=== PATIENT | male | born 1965 | race Caucasian/White ===

== ENCOUNTER 2018-08-06 06:56 | Day surgery (SDC) | payer BC, OTHER ==
[2018-08-05 10:58] VITALS: BMI 25.5
[2018-08-06] MEDS ORDERED: MIDAZOLAM HCL 2 MG/2 ML SINGLE DOSE VIAL ONE (08:57)
[2018-08-06] MEDS ORDERED: PROPOFOL 20 ML ONE (08:57)
[2018-08-06] MEDS ORDERED: ROCURONIUM BROMIDE 50 MG/5 ML VIAL ONE (08:57)
[2018-08-06] MEDS ORDERED: LIDOCAINE HCL/PF 2% SDV 5ML VIAL ONE (08:58)
[2018-08-06] MEDS ORDERED: DESFLURANE GAS 240 ML BOTTLE IH ONE (09:13)
[2018-08-06] MEDS ORDERED: ceFAZolin SODIUM 1 GM VIAL ONE (09:21)
[2018-08-06] MEDS ORDERED: SODIUM CHLORIDE 0.9% P/F 10 ML VIAL IJ ONE (09:21)
[2018-08-06] MEDS ORDERED: ceFAZolin SODIUM 1 GM VIAL IVPB ONE (09:22)
[2018-08-06] MEDS ORDERED: DEXAMETHASONE SOD PHOSPHATE 4 MG/1 ML VIAL ONE (09:23)
[2018-08-06] MEDS ORDERED: ONDANSETRON 4 MG/2 ML VIAL IVPUSH PRN (10:59)
[2018-08-06] MEDS ORDERED: PROMETHAZINE HCL 25 MG/1 ML VIAL IVPUSH PRN (10:59)
[2018-08-06] MEDS ORDERED: LACTATED RINGERS SOLUTION 1,000 ML IV SCH (11:00)
[2018-08-06] MEDS ORDERED: oxyCODONE HCL 5 MG TABLET PO PRN (11:16)
--- NOTE | 2018-08-06 11:18 | HP ---
Admitting History and Physical - Admission Chief Complaint: left lower extremity varicose veins. Here today for phlebectomy Limitations to Obtaining History: No Limitations - Past Medical History Cardiovascular: Yes: Hyperlipdemia - Past Surgical History Past Surgical History: Yes: None - Smoking History Smoking history: Never smoked Have you smoked in the past 12 months: No - Alcohol/Substance Use Hx Alcohol Use: No Home Medications - Allergies Allergies/Adverse Reactions: Allergies Allergy/AdvReac Type Severity Reaction Status Date / Time No Known Allergies Allergy Verified 08/06/18 08:03 - Home Medications Home Medications: Ambulatory Orders Aspirin [ASA -] 1 tab PO DAILY 09/15/17 Atorvastatin Ca [Lipitor] 1 tab PO HS 09/15/17 Review of Systems - Review of Systems Constitutional: reports: No Symptoms Eyes: reports: No Symptoms HENT: reports: No Symptoms Neck: reports: No Symptoms Cardiovascular: reports: No Symptoms Respiratory: reports: No Symptoms Gastrointestinal: reports: No Symptoms Genitourinary: reports: No Symptoms Musculoskeletal: reports: No Symptoms Integumentary: reports: No Symptoms Neurological: reports: No Symptoms Hematology/Lymphatic: reports: No Symptoms Psychiatric: reports: No Symptoms Physical Examination Vital Signs: Vital Signs Temperature 98.0 F 08/06/18 07:57 Pulse Rate 57 L 08/06/18 07:57 Respiratory Rate 20 08/06/18 07:57 Blood Pressure 133/90 08/06/18 07:57 O2 Sat by Pulse Oximetry (%) 98 08/06/18 07:38 Constitutional: Yes: Well Nourished, No Distress, Calm Eyes: Yes: WNL, Conjunctiva Clear, EOM Intact HENT: Yes: WNL, Atraumatic, Normocephalic Neck: Yes: WNL, Supple, Trachea Midline Cardiovascular: Yes: WNL, Regular Rate and Rhythm Respiratory: Yes: WNL, Regular, CTA Bilaterally Gastrointestinal: Yes: WNL, Normal Bowel Sounds Musculoskeletal: Yes: WNL Extremities: Yes: WNL, Other (varicose vein left lower extremities) Edema: No Peripheral Pulses WNL: Yes Integumentary: Yes: WNL Neurological: Yes: WNL, Alert, Oriented ...Motor Strength: WNL Psychiatric: Yes: WNL Problem List - Problems (1) Varicose veins of left leg with edema Assessment/Plan: left lower ext varicose veins 1. For stab phlebectomy today Code(s): I83.892 - VARICOSE VEINS OF L LOW EXTREM WITH OTHER COMPLICATIONS
--- NOTE | 2018-08-06 11:21 | OP ---
Operative Note - Note: Operative Date: 08/06/18 Pre-Operative Diagnosis: varicose veins left leg Operation: Stab phlebectomy left leg -- 23 stabs Post-Operative Diagnosis: Same as Pre-op Surgeon: Jeffery Butler Anesthesiologist/JUNIOR [employer]: Brennan Reich Anesthesia: General Estimated Blood Loss (mls): 100 Operative Report Dictated: Yes
[2018-08-06 13:04] VITALS: BP 127/77; PULSE 61; TEMP 97.7
--- NOTE | 2018-08-07 19:47 | PATH ---
Surgical Pathology Report Patient Name: DEVAN MEZA [facility]. Rec. #: [id number] /Age/Gender: 1965 (Age: 52) / M Account: [id number] Location: [facility] SURGICAL Taken: 08/06/2018 Received: 08/06/2018 Reported: 08/07/2018 Physicians: Jeffery Butler Specimen(s) Received VEIN,VARICOSITY LEFT LEG Clinical History Varicose veins left lower extremity Final Diagnosis VARICOSE VEINS, LEG, LEFT, STAB PHLEBECTOMY: VEINS WITH INTIMAL HYPERTROPHY AND FIBROSIS. Electronically Signed Halina Sharpe M.D. Gross Description Received in formalin labeled "varicose veins left leg," is a 5.5 x 3.7 x 0.6 cm aggregate of abundant garcia portions of vasculature, consistent with varicose veins. Fine [employer] Packer sections are submitted in one cassette. /08/06/201808/06/2018
--- NOTE | 2018-08-12 13:49 | OP ---
DATE OF OPERATION: 08/06/2018 PREOPERATIVE DIAGNOSIS: Varicose veins, left leg. POSTOPERATIVE DIAGNOSIS: Varicose veins, left leg. PROCEDURE: Stab phlebectomy, left leg, 23 stab incisions. SURGEON: Jeffery Baumann DO ANESTHESIA: General. ANESTHESIOLOGIST: Rodriguez Reich MD BLOOD LOSS: 100 mL. HISTORY: The patient is a 52-year-old male who has left lower extremity varicose veins. He has had radiofrequency ablation already done and now he has varicose veins that need to be removed. The patient came in through ambulatory surgery. The patient was consented for the procedure and signed all risks, benefits and alternatives. Prior to going into the operating room into holding area the patient stood up and using a skin marker we outlined all the varicosities to be removed. DESCRIPTION OF PROCEDURE: Once patient got to the operating room he was laid on the operating table in supine manner and general anesthesia was administered to the patient. We then prepped the left leg in sterile surgical manner. We then went ahead and used a small vein knife that was like an 11 blade and we were able to make a stabs on our incisions and using a vein hook the vein hook the vein was extracted and using a we were able remove the vein and send it to pathology. In this manner we were able to make 23 stab incisions and the varicose veins were all removed. Pressure was held in each area for 5-10 minutes to make sure that the bleeding stopped. We made a total of 23 stab incisions going from the calf all the way up into the mid-thigh and all the varicosities were removed. Varicose veins were then sent off to pathology. We then wet and dried the leg and then we went ahead and placed 23 Steri-Strips over our incisions, 4 x 4s were placed, ABD pads were placed, Kerlix was placed and an Keo bandage was placed. The patient tolerated the procedure well with no complications. Total blood loss was 100 mL. The patient transferred to the PACU in stable condition with no complications. JEFFERY BAUMANN DO [id number]
== END 2018-08-06 13:15 | disposition home or self-care (01) ==
LOC: JASU-SURG 06:56
PROVIDERS: ATTEND Surgery Vascular Surgery
PROC: 06BY0ZZ Excision of Lower Vein, Open Approach (ICD-10-PCS; principal; 2018-08-06 08:30)
DX: I83.892 Varicose veins of left lower extremity with other complications (principal); E78.5 Hyperlipidemia, unspecified
CPT/HCPCS: 86850; 86900; 86901; 88304-TC; 94760

== ENCOUNTER 2022-05-01 09:24 | Inpatient (IN) | payer BC ==
[2022-05-01] MEDS ORDERED: ONDANSETRON *ODT* 4 MG TABLET SL PRN (10:18)
[2022-05-01 10:30] LABS: HEMATOCRIT 45.1 % (35.4-49); HEMOGLOBIN 15.7 G/dL (11.7-16.9); MCH 30.3 pg (25.7-33.7); MCHC 34.9 g/dl (32.0-35.9); MEAN CELL VOLUME 86.9 fl (80-96); MEAN PLT VOLUME 8.7 fl (7.5-11.1); PLATELET COUNT 261.6 10^3/uL (134-434); RBC 5.19 10^6/uL (4.00-5.60); RDW 14.4 % (11.9-15.9); WHITE BLOOD COUNT 12.3 10^3/uL (4.0-10.8)
[2022-05-01 10:46] LABS: INR 1.05 (0.83-1.09); PROTHROMBIN TIME (PATIENT) 12.1 SEC (9.7-13.0)
[2022-05-01 11:04] LABS: ALBUMIN 3.8 g/dl (3.4-5.0); BILIRUBIN,TOTAL 1.1 mg/dl (0.2-1); CALCIUM 9.3 mg/dl (8.5-10); CREATININE 1.1 mg/dl (0.55-1.3); TOT PROT 6.8 g/dl (6.4-8.2)
[2022-05-01] MEDS: SODIUM CHLORIDE 1,000 ML IV SCH ×2 (12:19→22:19)
[2022-05-01 12:50] LABS: PLATELET ESTIMATE ADEQUATE
[2022-05-01] MEDS: ACETAMINOPHEN 325 MG TABLET (FP) PO PRN ×2 (12:51→22:02)
[2022-05-01 15:14] LABS: EPITHELIAL CELLS FEW /hpf
[2022-05-01 16:11] VITALS: BMI 25.8
[2022-05-02] MEDS: ACETAMINOPHEN 325 MG TABLET (FP) PO PRN ×3 (03:50→22:16)
[2022-05-02] MEDS ORDERED: REMDESIVIR 200 MG in SODIUM CHLORIDE 250 ML IVPB ONE (10:00)
[2022-05-02] MEDS: SODIUM CHLORIDE 1,000 ML IV SCH (11:44)
[2022-05-02] MEDS ORDERED: ALBUTEROL SO4 HFA INHALER IH PRN (12:08)
[2022-05-02] MEDS: BUDESONIDE/FORMETEROL FUMARATE 160/4.5 mcg INHALER IH SCH ×2 (13:28→22:17)
[2022-05-02] MEDS: ATORVASTATIN CA 10 MG TABLET (FP) PO SCH (22:17)
[2022-05-03 03:40] VITALS: RESP 18
[2022-05-03 07:38] LABS: BASO % 0.6 % (0-2.0); HEMOGLOBIN 14.1 GM/dL (11.7-16.9); LYMPH % 25.4 % (8-40); MCH 30.6 pg (25.7-33.7); MCHC 35.2 g/dl (32.0-35.9); MEAN CELL VOLUME 87.1 fl (80-96); MEAN PLT VOLUME 8.9 fl (7.5-11.1); MONO % 14.1 % (3.8-10.2); NEUT % 58.9 % (42.8-82.8); PLATELET COUNT 208 10^3/uL (134-434); RDW 14.1 % (11.9-15.9); WHITE BLOOD COUNT 5.4 K/mm3 (4.0-10.0)
[2022-05-03 08:09] LABS: CALCIUM 8.1 mg/dL (8.5-10.1)
[2022-05-03 08:10] LABS: BLOOD UREA NITROGEN 11.8 mg/dL (7-18); MAGNESIUM 2.3 mg/dL (1.8-2.4)
[2022-05-03 08:18] LABS: CREATININE 0.9 mg/dL (0.55-1.3)
[2022-05-03 08:19] LABS: BILIRUBIN,TOTAL 0.3 mg/dL (0.2-1)
[2022-05-03] MEDS: BUDESONIDE/FORMETEROL FUMARATE 160/4.5 mcg INHALER IH SCH ×2 (10:42→21:56)
[2022-05-03] MEDS: amLODIPine BESYLATE 5 MG TABLET (FP) PO SCH (10:42)
[2022-05-03] MEDS: ASPIRIN 81 MG CHEWABLE TABLETS PO SCH (10:42)
[2022-05-03] MEDS: REMDESIVIR 100 MG in SODIUM CHLORIDE 250 ML IVPB SCH (10:42)
[2022-05-03] MEDS: ENOXAPARIN NA (PORCINE) 40 MG/0.4 ML DISP.SYRIN SQ SCH (10:42)
[2022-05-03] MEDS: SODIUM CHLORIDE 1,000 ML IV SCH ×2 (10:54→23:48)
[2022-05-03] MEDS: ATORVASTATIN CA 10 MG TABLET (FP) PO SCH (21:53)
[2022-05-04 08:27] LABS: BASO % 0.3 % (0-2.0); EOS % 3.6 % (0-4.5); HEMATOCRIT 41.7 % (35.4-49); HEMOGLOBIN 14.1 GM/dL (11.7-16.9); LYMPH % 30.7 % (8-40); MCHC 33.9 g/dl (32.0-35.9); MEAN CELL VOLUME 85.7 fl (80-96); MEAN PLT VOLUME 9.3 fl (7.5-11.1); MONO % 9.3 % (3.8-10.2); NEUT % 56.1 % (42.8-82.8); PLATELET COUNT 218 10^3/uL (134-434); RBC 4.86 M/mm3 (4.00-5.60); RDW 14.1 % (11.9-15.9); WHITE BLOOD COUNT 4.8 K/mm3 (4.0-10.0)
[2022-05-04 08:40] LABS: BLOOD UREA NITROGEN 11.4 mg/dL (7-18); CALCIUM 8.3 mg/dL (8.5-10.1)
[2022-05-04 08:41] LABS: MAGNESIUM 1.9 mg/dL (1.8-2.4)
[2022-05-04 08:44] LABS: CREATININE 0.8 mg/dL (0.55-1.3)
[2022-05-04 08:46] LABS: BILIRUBIN,TOTAL 0.3 mg/dL (0.2-1); TOT PROT 5.7 g/dl (6.4-8.2)
[2022-05-04] MEDS: ASPIRIN 81 MG CHEWABLE TABLETS PO SCH (10:22)
[2022-05-04] MEDS: amLODIPine BESYLATE 5 MG TABLET (FP) PO SCH (10:22)
[2022-05-04] MEDS: BUDESONIDE/FORMETEROL FUMARATE 160/4.5 mcg INHALER IH SCH (10:22)
[2022-05-04] MEDS: REMDESIVIR 100 MG in SODIUM CHLORIDE 250 ML IVPB SCH (10:22)
[2022-05-04] MEDS: ENOXAPARIN NA (PORCINE) 40 MG/0.4 ML DISP.SYRIN SQ SCH (10:22)
[2022-05-04 10:34] VITALS: BP 132/74; PULSE 77; TEMP 98.8
== END 2022-05-04 14:43 | disposition home or self-care (01) | DRG 177 ==
LOC: FER 09:24 → UNDOADMOB 10:21 → FM/S 10:21 → J4W 13:10 → OBSVTOIN 13:10
PROVIDERS: ADMIT Family Medicine; ATTEND Nurse Practitioner Acute Care
PROC: XW033E5 Introduction of Remdesivir Anti-infective into Peripheral Vein, Percutaneous Approach, New Technology Group 5 (ICD-10-PCS; principal; 2022-05-02)
DX: U07.1 COVID-19 (principal); J96.00 Acute respiratory failure, unspecified whether with hypoxia or hypercapnia; R55 Syncope and collapse; I10 Essential (primary) hypertension; E78.5 Hyperlipidemia, unspecified
CPT/HCPCS: 0241U-QW; 36415; 71045-TC-FY; 80053; 81003; 81015; 83735; 84484; 85025; 85027; 85379; 85610; 85651; 86140; 87040; 87086; 93005; 93306-TC; 93880-TC; 99285-25; C9399